=== PATIENT | female | born 1965 | race Caucasian/White ===

== ENCOUNTER 2020-07-17 13:01 | Emergency (ER) | payer BC, OTHER ==
[~2020-07-17] VITALS: Ht 180.3 cm; Wt 145.6 kg
[~2020-07-17 13:01] MED LIST: LISI5TAB7 PO
--- NOTE | 2020-07-17 13:51 | NUR ---
LABS DONE, US AT BS. PT UPDATED ON POC, INCLUDING NEED FOR UA WHEN DONE WITH US. URINE CUP PROVIDED, CALL LIGHT WITHIN REACH.
[2020-07-17 13:58] LABS: BASOPHILS # (AUTO) 0.06 x10^3/uL (0-0.1); BASOPHILS % (AUTO) 1 % (0-1); EOSINOPHILS # (AUTO) 0.07 x10^3/uL (0-0.4); EOSINOPHILS % (AUTO) 1 % (1-7); LYMPHOCYTES # (AUTO) 3.21 x10^3/uL (1-3.4); LYMPHOCYTES % (AUTO) 53 % (22-44); MD NO; MEAN CORPUSCULAR HEMOGLOBIN 29.8 pg (27.0-34.8); MEAN CORPUSCULAR HGB CONC 33.4 g/dL (32.4-35.8); MEAN CORPUSCULAR VOLUME 89.4 fL (80-100); MONOCYTES # (AUTO) 0.48 x10^3/uL (0.2-0.8); MONOCYTES % (AUTO) 8 % (2-9); NEUTROPHILS # (AUTO) 2.21 x10^3/uL (1.8-6.8); NEUTROPHILS % (AUTO) 37 % (42-75); PLATELET COUNT 213 x10^3/uL (130-400); RED BLOOD COUNT 4.98 x10^6/uL (3.82-5.3); RED CELL DISTRIBUTION WIDTH 12.9 % (9.6-15.2)
[2020-07-17 14:09] LABS: ALANINE AMINOTRANSFERASE 77 U/L (12-78); ALBUMIN 3.7 g/dL (3.4-5.0); ANION GAP 7 mmol/L (5-15); CALCIUM 9.4 mg/dL (8.5-10.1); CHLORIDE 102 mmol/L (98-107); CREATININE 1.39 mg/dL (0.55-1.02)
[2020-07-17 14:11] LABS: ALKALINE PHOSPHATASE 53 U/L (45-117); TOTAL PROTEIN 7.6 g/dL (6.4-8.2)
--- NOTE | 2020-07-17 14:11 | NUR ---
URINE COLLECTED/SENT TO LAB.
[2020-07-17 14:21] LABS: MICROSCOPIC AUTO
[2020-07-17 14:23] VITALS: BP 132/106
[2020-07-17] MEDS ORDERED: MAALOX/HYOSCYAMINE/LIDOCAINE 45 ML BTL PO ONE (14:30)
== END 2020-07-17 14:50 | disposition home or self-care (01) ==
LOC: ED 13:38
DX: N18.2 Chronic kidney disease, stage 2 (mild) (principal); E87.1 Hypo-osmolality and hyponatremia; R10.11 Right upper quadrant pain; E66.9 Obesity, unspecified; Z90.710 Acquired absence of both cervix and uterus
CPT/HCPCS: 36415; 76700; 80053; 81001; 83690; 85025; 87086; 99284